=== PATIENT | female | born 1940 | race Caucasian/White ===

== ENCOUNTER 2018-03-05 16:57 | Emergency (ER) | payer OTHER ==
[~2018-03-05] VITALS: Ht 167.6 cm; Wt 77.1 kg
[2018-03-05] MEDS ORDERED: SODIUM CHLORIDE 0.9% 1,000 ML IV ONE (17:15)
[2018-03-05 17:51] LABS: Basophils # (auto) 0.1 uL; Basophils % (auto) 0.4 % (0.0-2.0); Eosinophils # (auto) 0.2 uL; Eosinophils % (auto) 1.8 % (0.0-7.0); Hematocrit 35.9 % (36.0-46.0); Hemoglobin 11.9 g/dL (12.2-16.2); Lymphocytes # (auto) 2.3 uL; Lymphocytes % (auto) 18.6 % (10.0-50.0); Mean Corpuscular Hemoglobin 30.6 pg (28.0-32.0); Mean Corpuscular Hgb Conc. 33.2 g/dL (32.0-36.0); Mean Corpuscular Volume 92.1 fL (80.0-100.0); Monocytes # (auto) 1.1 uL; Neutrophils # (auto) 8.6 uL; Neutrophils % (auto) 70.2 % (37.0-80.0); Platelet Count (auto) 286 10^3/uL (140-450); Red Blood Cells 3.89 10^6/uL (4.0-5.20); Red Cell Distribution Width 14.4 % (11.8-14.3); White Blood Cell 12.2 10^3/uL (4.4-10.8)
[2018-03-05 18:04] LABS: INR 0.97 (0.9-1.15); Partial Thromboplastin Time 24.9 sec (23.78-33.04); Prothrombin Time 10.4 sec (9.27-12.13)
[2018-03-05 18:10] LABS: Albumin 3.3 g/dL (3.4-5.0); BUN/Creatinine Ratio 10.8; Calcium 8.7 mg/dL (8.5-10.1); Magnesium 2.1 mg/dL (1.6-2.6); Potassium 4.4 mmol/L (3.5-5.1)
[2018-03-05 18:13] LABS: Bilirubin, Total 0.3 mg/dL (0.2-1.0); Total Protein 6.6 g/dL (6.4-8.2)
[2018-03-05] MEDS ORDERED: MORPHINE SULF INJ 2 MG/ML SYRINGE 1ML IV ONE ×2 (18:15→19:45)
[2018-03-05] MEDS ORDERED: ONDANSETRON HCL 4 MG/2 ML VIAL IV ONE (18:15)
== END 2018-03-05 20:10 | disposition short-term general hospital (02) ==
LOC: EDBD 16:57 → ER 16:57
DX: S82.842A Displaced bimalleolar fracture of left lower leg, initial encounter for closed fracture (principal); M62.838 Other muscle spasm; M47.892 Other spondylosis, cervical region; E11.9 Type 2 diabetes mellitus without complications; I10 Essential (primary) hypertension; W19.XXXA Unspecified fall, initial encounter; Y93.89 Activity, other specified; Y92.098 Other place in other non-institutional residence as the place of occurrence of the external cause; Y99.8 Other external cause status
CPT/HCPCS: 29515; 36415; 72040; 73610; 80053; 83735; 85025; 85610; 85730; 96374; 96375; 96376; 99285; J2270; J2405; J7030

== ENCOUNTER 2018-08-20 11:13 | Emergency (ER) | payer OTHER ==
[~2018-08-20] VITALS: Ht 167.6 cm; Wt 77.1 kg
[2018-08-20] MEDS ORDERED: SODIUM CHLORIDE 0.9% 1,000 ML IVB ONE (11:34)
[2018-08-20] MEDS ORDERED: ACETAMINOPHEN 325 MG TAB PO ONE ×2 (11:45→17:15)
[2018-08-20 12:05] LABS: Basophils # (auto) 0 uL; Eosinophils # (auto) 0 uL; Eosinophils % (auto) 0.1 % (0.0-7.0); Hematocrit 36.8 % (36.0-46.0); Hemoglobin 12.2 g/dL (12.2-16.2); Lymphocytes # (auto) 0.6 uL; Lymphocytes % (auto) 3.2 % (10.0-50.0); Mean Corpuscular Hgb Conc. 33.1 g/dL (32.0-36.0); Mean Corpuscular Volume 90.8 fL (80.0-100.0); Monocytes # (auto) 1.4 uL; Monocytes % (auto) 7.4 % (0.0-12.0); Neutrophils # (auto) 16.3 uL; Neutrophils % (auto) 89.3 % (37.0-80.0); Platelet Count (auto) 227 10^3/uL (140-450); Red Blood Cells 4.06 10^6/uL (4.0-5.20); Red Cell Distribution Width 14.1 % (11.8-14.3); White Blood Cell 18.3 10^3/uL (4.4-10.8)
[2018-08-20 12:18] LABS: Partial Thromboplastin Time 25.7 sec (23.78-33.04); Prothrombin Time 10.7 sec (9.27-12.13)
[2018-08-20 12:19] LABS: Urine WBC None Seen /hpf (0 - 5)
[2018-08-20 12:25] LABS: Albumin 3.3 g/dL (3.4-5.0); Anion Gap 8 (5-15); Blood Urea Nitrogen 15 mg/dL (7-18); Calcium 8.5 mg/dL (8.5-10.1); Carbon Dioxide 24 mmol/L (21-32); Chloride 103 mmol/L (98-107); Glucose 196 mg/dL (74-106); Magnesium 2.1 mg/dL (1.6-2.6); Potassium 4.7 mmol/L (3.5-5.1); Sodium 135 mmol/L (136-145)
[2018-08-20 12:28] LABS: Lactic Acid w/Reflex 2.3 mmol/L (0.4-2.0)
[2018-08-20 12:31] LABS: Alanine Aminotransferase 25 U/L (13-56); Alkaline Phosphatase 90 U/L (45-117); Aspartate Aminotransferase 21 U/L (15-37); BUN/Creatinine Ratio 17.6; Bilirubin, Total 0.7 mg/dL (0.2-1.0); GFR African American 84 mL/min; GFR Non-African American 69 mL/min; Total Protein 6.7 g/dL (6.4-8.2)
[2018-08-20 12:33] LABS: Urine Bacteria NONE SEEN /hpf (None Seen); Urine Blood Negative /uL (Negative); Urine Specific Gravity 1.024 (1.001-1.035)
[2018-08-20] MEDS ORDERED: cefTRIAXone 1GM/50ML D5W 50 ML IV ONE (12:45)
[2018-08-20] MEDS ORDERED: SODIUM CHLORIDE 0.9% 1,000 ML IV ONE ×2 (12:45)
[2018-08-20] MEDS ORDERED: SODIUM CHLORIDE 0.9% 500 ML IV ONE (12:45)
[2018-08-20] MEDS ORDERED: ONDANSETRON HCL 4 MG/2 ML VIAL IV ONE (13:00)
[2018-08-20 16:31] LABS: Amylase 21 U/L (25-115); Lipase 66 U/L (73-393)
[2018-08-20] MEDS ORDERED: PROMETHAZINE HCL 25 MG/ML 1ML ONE (17:43)
[2018-08-20] MEDS ORDERED: PROMETHAZINE HCL 25 MG/ML 1ML IV ONE (17:45)
[2018-08-20 22:00] VITALS: BP 142/45
== END 2018-08-20 22:20 | disposition short-term general hospital (02) ==
LOC: ER 11:13 → EDBD 11:13 → ER 22:20
DX: A41.9 Sepsis, unspecified organism (principal); G92 Toxic encephalopathy; K80.20 Calculus of gallbladder without cholecystitis without obstruction; R11.2 Nausea with vomiting, unspecified; E11.9 Type 2 diabetes mellitus without complications; I10 Essential (primary) hypertension
CPT/HCPCS: 36415; 51702; 70450; 71045; 74176; 76705; 80053; 80320; 81001; 82150; 83605; 83690; 83735; 84484; 85025; 85610; 85730; 87040; 87086; 87804; 93005; 94761; 96361; 96365; 96375; 99291; J0696; J2405; J2550; J7030

== ENCOUNTER 2024-06-27 19:25 | Emergency (ER) | payer OTHER ==
[~2024-06-27] VITALS: Ht 167.6 cm; Wt 86.4 kg
[2024-06-27 19:34] VITALS: BP 181/76; PULSE 74; RESP 18; O2SAT 96
--- NOTE | 2024-06-27 20:07 | ED.PDOC ---
History of Present Illness HPI Comments 83 y/o F is BIBA for c/o ALOC, today. Per EMS report, patient's spouse called EMS, due to finding the patient altered, this evening, characterized by abnormal behavior and oriented only to herself. Prior, patient was commented by said spouse on her having a fever, intermittently, recently. Patient was also noted to have vomited 1x with EMS staff on scene when sat upright. Patient has no additional symptoms reported at this time. Further Hx cannot be obtained, due to patient's condition and absence of family/software team leader historians. Chief Complaint: ALOC Time Seen by MD: 19:30 Primary Care Provider: SCOTT Husain Notes: Nurses Notes, Court Messenger Notes, Medications, Allergies Allergies: Coded Allergies: NO KNOWN ALLERGIES (Unverified , 03/05/18) Information Source: Emergency Med Personnel Mode of Arrival: EMS Severity: Moderate Timing: Hours Duration: Since onset Prehospital treatment: None Past Medical History PAST MEDICAL HISTORY: DM, HTN Surgical History: Denies all surgeries DIRECTOR OF RETENTION History: No Pertinent DIRECTOR OF RETENTION History Family History Family History: Unknown Social History Smoker: Non-Smoker Alcohol: Denies ETOH Use Drugs: Denies Drug Use Lives In: Home Neurological: reports: others (ALOC) All Other Systems: Reviewed and Negative (negative unless otherwise stated above or in HPI) Physical Exam General Appearance: Mild Distress, Obese HEENT: Normal ENT Inspection, Pharynx Normal, TMs Normal Neck: Full Range of Motion, Non-Tender, Normal, Normal Inspection Respiratory: Chest Non-Tender, Lungs Clear, No Accessory Muscle Use, No Respiratory Distress, Normal Breath Sounds Cardiovascular: No Edema, No JVD, No Murmur, No Gallop, Normal Peripheral Pulses, Regular Rate/Rhythm Breast Exam: Deferred Gastrointestinal: No Organomegaly, Non Tender, No Pulsatile Mass, Normal Bowel Sounds, Soft Genitalia: Deferred Pelvic: Deferred Rectal: Deferred Extremities: No calf tenderness, Normal capillary refill, Normal inspection, Normal range of motion, Non-tender, No pedal edema Musculoskeletal : Apperance: Normal Neurologic: Alert (A&)x1), reservationist II-XII nml as Tested, No Motor Deficits, No Sensory Deficits Cerebellar Function: Normal Reflexes: Normal Skin: Dry, Normal Color, Warm Lymphatic: No Adenopathy Was a procedure done? Was a procedure done?: No Differential Dx Considerations may include: electrolyte imbalance, encephalopathy, dehydration, intracranial bleed, CVA, TIA X-Ray, Labs, Meds, VS Vital Signs Date Time Temp Pulse Resp B/P (MAP) Pulse Ox O2 Delivery O2 Flow Rate FiO2 06/27/24 19:34 98.9 74 18 181/76 (111) 96 The patient's saw her family member outside and decided to elope. Open occurred prior to lab draw and radiographic scanning. Time of 1ST Reevaluation: 20:00 Reevaluation 1ST: Unchanged Patient Education/Counseling: Other (patient is altered) Family Education/Counseling: No Family Present Departure 1 Departure Time of Disposition: 23:00 Impression: Primary Impression: Altered mental status Qualified Codes: R41.82 - Altered mental status, unspecified Additional Impression: Metabolic encephalopathy Disposition: LEFT AWOL/ELOPED Condition: Guarded Discharged With: Relative Comments The patient eloped. Patient was screened with an assessment of cognitive status and the testing revealed no signs of cognitive impairment. The patient is alert and oriented to person, place, and time. Patient gives appropriate answers and speaks coherently. The Glascow Coma Score is 15. A repeat gross neurologic exam shows no abnormalities. The patient was not in pain or distracted during our discussion. The patient exhibited no signs of depression, psychosis or tangential / delusional thinking. Normal thought process. Patient has no auditory or visual hallucinations. Patient has no suicidal or homicidal ideations. Patient is competent to make own decisions. Had in-depth discussion with patient about possible diagnosis. All clinical information and issues discussed with patient. The patient understands the medical condition. We discussed our proposed treatment, alternatives, and risks and benefits of both. Patient aware of recommendations. Had extensive discussion with patient regarding the risks of refusing our recommended treatment and disposition plans which includes but not exclusive to , brain damage, neurologic dysfunction, permanent mental impairment, worsening of symptoms, loss of limb, loss of ability to function, loss of sexual function and loss of current lifestyle and worsening of condition. Despite repeating my recommendations and patient expressing understanding of these risks, patient still wanted to leave. Patient signed out AMA and accepted all risks. Patient offered appropriate clinic follow-ups and prescriptions. Patient instru cted to return to our ED or the closest ED if ANY exacerbation of symptoms. Critical Care Note Critical Care Time?: No Stability Stability form required: No Heart Score Heart Score: Heart Score Response (Comments) Value History N/A 0 EKG N/A 0 Age N/A 0 Risk Factors N/A 0 Troponin N/A 0 Total 0 I personally scribed for DORETHA JONES MD ([email or web address]) on 06/27/24 at 20:07. Electronically submitted by Tahir Engle ([email or web address]). DORETHA JONES MD Jun 27, 2024 20:07
== END 2024-06-27 20:52 | disposition left against medical advice (07) ==
LOC: EDBD 19:25 → ER 19:25
DX: G93.41 Metabolic encephalopathy (principal); R41.82 Altered mental status, unspecified; E11.9 Type 2 diabetes mellitus without complications; I10 Essential (primary) hypertension